=== PATIENT | female | born 1945 | race Caucasian/White ===

== ENCOUNTER 2023-09-28 15:42 | Emergency (ER) | payer OTHER ==
[2023-09-28] MEDS ORDERED: Lidocaine 1% w/Epinephrine 1:100K 20 ML VIAL ONE (16:12)
== END 2023-09-28 16:36 | disposition home or self-care (01) ==
LOC: MADERS 15:42
DX: S01.01XA Laceration without foreign body of scalp, initial encounter (principal); S06.0X0A Concussion without loss of consciousness, initial encounter; E78.00 Pure hypercholesterolemia, unspecified; Z79.899 Other long term (current) drug therapy; W22.8XXA Striking against or struck by other objects, initial encounter
CPT/HCPCS: 12001; 99283

== ENCOUNTER 2023-10-06 09:56 | Emergency (ER) | payer OTHER ==
[2023-10-06] MEDS ORDERED: Bacitracin 1 PK ONE (10:32)
== END 2023-10-06 11:05 | disposition home or self-care (01) ==
LOC: MADERS 09:56
DX: S01.01XD Laceration without foreign body of scalp, subsequent encounter (principal); W18.30XD Fall on same level, unspecified, subsequent encounter